=== PATIENT | male | born 1980 | race Caucasian/White ===

== ENCOUNTER 2023-02-12 05:58 | Day surgery (SDC) | payer OTHER ==
[2023-02-12] MEDS ORDERED: Lactated Ringers 1,000 ML IV ONE (06:12)
[2023-02-12] MEDS ORDERED: CEFAZOLIN 2 GM-D5W BAG** 2 GM/50 ML ML IV ONE (06:12)
[2023-02-12] MEDS ORDERED: CEFAZOLIN 2 GM-D5W BAG** 2 GM/50 ML ML IV SCH (06:30)
[2023-02-12] MEDS ORDERED: Lactated Ringers 1,000 ML IV SCH (06:30)
[2023-02-12] MEDS ORDERED: Marcaine Mpf 0.5% Vial 30 Ml ONE (06:34)
[2023-02-12] MEDS ORDERED: XYLOCAINE 1% HCL 20 ML MDV ONE (06:34)
[2023-02-12] MEDS ORDERED: Xylocaine-Mpf 2% 5 Ml Vial ONE (07:44)
[2023-02-12] MEDS ORDERED: DIPRIVAN 200 MG/20 ML IV ONE ×2 (07:44→08:41)
[2023-02-12] MEDS ORDERED: Versed 2 MG/2 ML Injection ONE (07:45)
[2023-02-12] MEDS ORDERED: SUBLIMAZE 100 MCG/2 ML ONE (08:08)
--- NOTE | 2023-02-12 09:35 | XRAY ---
Indication: Foreign body removal left foot. Intraoperative fluoroscopy provided for 13 minutes 39 seconds. 9 digital spot images submitted for interpretation demonstrates successful removal of foreign body needle from plantar aspect great toe. Correlate with intraoperative findings/report.
[2023-02-12 10:37] VITALS: BP 118/70; PULSE 72; O2SAT 99
--- NOTE | 2023-02-12 12:02 | OP ---
SURGERY DATE: 02/12/2023812 PREOPERATIVE DIAGNOSES: 1) Retained foreign body left foot. 2) Pain left foot. POSTOPERATIVE DIAGNOSES: 1) Retained foreign body left foot. 2) Pain left foot. PROCEDURE: Removal of foreign body deep left foot. SURGEON: Rogelio Henderson DPM. DRIVE WORKER: None. ANESTHESIA: Monitored anesthesia care with a preoperative local block consisting of 30 cc of a 1:1 mixture of 1% lidocaine plain and 0.5% bupivacaine plain injected in a Frank block type fashion. HEMOSTASIS: Ankle tourniquet which was not inflated for the procedure and a pressure dressing. ESTIMATED BLOOD LOSS: Minimal. INJECTABLES: 30 cc of a 1:1 mixture of 1% lidocaine plain and 0.5% bupivacaine plain injected in a Frank block type fashion to the left foot. INDICATION FOR SURGERY: Holger is a very pleasant 42-year-old male who presented to my service yesterday for retained foreign body to the left foot. The patient was walking on carpet approximately one week ago and felt a sharp stinging sensation. When he lifted his foot he pulled out what appeared to be a small piece of sewing needle. The patient ambulated with minimal complication for a day or two but then started having some increase in pain and swelling. Concerned the patient presented to [facility] and an x-ray was taken demonstrating a retained foreign body approximately 27 to 30 mm in length. The patient was sent for referral to my service yesterday and based on the location and the depth of the retained foreign body the decision was made to perform this under monitored anesthesia care as well as local to improve patient's comfort as well as be thorough in removal of the foreign body without complication. The patient understands all risks, complications and benefits of surgical intervention including but not limited to infection, hematoma, seroma, possibility of delayed wound healing, nonwound healing, possibility of need for need of further surgical intervention at a later date. No guarantees were provided as to the outcome of surgical intervention. Plenty of time was allowed for the patient to ask questions to his apparent satisfaction. It is with that we decided to proceed. DESCRIPTION OF PROCEDURE AND FINDINGS: The patient was brought into the OR and placed on the OR table in the supine position. At this time monitored anesthesia care was administered until the patient was sedated. Under aseptic technique, a Frank block was performed utilizing 30 cc of 1:1 mixture of 1% lidocaine plain and 0.5% bupivacaine plain. Following this the left lower extremity was prepped and draped in the typical sterile fashion and lowered onto the surgical field. At this time under fluoroscopic guidance, a small poke hole incision was made at the distal tip of where the needle had entered. Utilizing blunt dissection a small straight Karina was utilized to dissect down to the level of where the needle was. Following this, a rongeur was introduced in through this site and removed the majority of the needle. In the removal process, a piece of this did break and a second attempt at retrieval was performed being successful in removing the retained foreign body. Copious amounts of sterile saline were then utilized to flush the surgical site. At that time we deemed no obvious infection within the site and decided on primary closure of the wound. Closure was performed utilizing 3-0 Nylon in horizontal mattress-type fashion. With that a dressing consisting of Betadine, Adaptic, 4x4, Kerlix and KATELYN was applied to the patient's left foot. The patient was reversed from anesthesia and returned to the postoperative anesthesia care unit with vital signs stable and vascular status intact. The patient handled the anesthesia as well as the procedure without significant complication. Postoperative orders as indicated in the patient's discharge chart.
--- NOTE | 2023-02-12 12:34 | XRAY ---
13 minutes 39 seconds of fluoroscopy was used in surgery for a foreign body removal of left foot.
== END 2023-02-12 10:30 | disposition home or self-care (01) ==
LOC: SDC 05:58
PROVIDERS: ATTEND Podiatrist Foot & Ankle Surgery
DX: M79.5 Residual foreign body in soft tissue (principal); M79.672 Pain in left foot
CPT/HCPCS: 28192; 73630; 76000; J0690; J2250; J2704; J3010